=== PATIENT | female | born 1960 | race Caucasian/White ===

== ENCOUNTER 2020-01-31 07:59 | Inpatient (IN) | payer MEDICAID ==
[~2020-01-31] VITALS: Ht 157.5 cm; Wt 90.3 kg
[2020-01-31 08:51] LABS: BASOPHILS % 0.5 % (0.0-2.0); EOSINOPHILS % 0.2 % (0.0-5.0); HEMATOCRIT. 39.3 % (36.0-48.0); HEMOGLOBIN. 12.1 g/dL (12.0-16.0); LYMPHOCYTES % 11.4 % (20.0-50.0); MEAN CORPUSCULAR HEMOGLOBIN 24.3 pg (28.0-32.0); MEAN CORPUSCULAR VOLUME 79.1 fL (81.0-99.0); MEAN PLATELET VOLUME 9.2 fl (7.4-10.4); MONOCYTES % 9.6 % (2.0-8.0); NEUTROPHILS % 78.3 % (40.0-76.0); PLATELET 293 x1000/uL (130-400); RED BLOOD CELL COUNT 4.98 mill/uL (4.2-5.4); RED CELL DISTRIBUTION WIDTH 14.1 % (11.6-14.6)
[2020-01-31 08:54] LABS: CHLORIDE 102 mEq/L (98-107)
[2020-01-31 09:27] LABS: PROTHROMBIN TIME 10.6 sec (9.6-11.0)
[2020-01-31] MEDS ORDERED: SODIUM BICARBONATE 4% (2.4MEQ) 5ML VIAL IV ONE (10:09)
[2020-01-31] MEDS ORDERED: LIDOCAINE HCL 1% 20ML VIAL (Pyxis) INJ ONE (10:09)
[2020-01-31 12:09] LABS: BG CARBOXYHEMOGLOBIN 0.6 % (0.5-1.5); BG FRACTION INSPIRED OXYGEN 28; BG HCO3 ACT 27.1 mmol/L (22.0-26.0); BG METHEMOGLOBIN 0.1 % (0.0-1.5); BG OXYHEMOGLOBIN 93.3 % (94.0-97.0); BG PCO2 49.7 mmHg (35.0-45.0); BG PH 7.355 (7.350-7.450); BG PO2 73.6 mmHg (75.0-100.0); BG SAMPLE SITE LEFT RADIAL; BG TOTAL HEMOGLOBIN 12.4 g/dL (12.0-18.0); BG VENT MODE NASAL CANNULA
[2020-01-31] MEDS ORDERED: LEVOFLOXACIN 750MG PREMIX 150 ML IV ONE (12:15)
[2020-01-31 15:00] VITALS: BP 107/60
[2020-01-31] MEDS ORDERED: ONDANSETRON HCL 4MG/2ML INJ IV PRN (15:00)
[2020-01-31] MEDS ORDERED: LORAZEPAM 0.5MG TABLET PO PRN (15:00)
[2020-01-31] MEDS ORDERED: HYDROCODONE/ACETAMINOPHEN 5/325MG TABLET PO PRN (15:00)
[2020-01-31] MEDS ORDERED: GUAIFENESIN 200MG/10ML SUGAR FREE UDC PO PRN (15:00)
[2020-01-31] MEDS ORDERED: ACETAMINOPHEN 325MG TABLET PO PRN ×2 (15:00)
[2020-01-31] MEDS ORDERED: DOCUSATE SODIUM 100MG CAPSULE PO PRN (15:00)
[2020-01-31] MEDS ORDERED: CLONIDINE 0.1MG TABLET PO PRN (15:00)
[2020-01-31 16:00] VITALS: BP 110/62
[2020-01-31] MEDS ORDERED: FUROSEMIDE 40MG/4ML VIAL IVP NR (16:00)
[2020-01-31] MEDS: IPRATROPIUM/ALBUTEROL 0.5-3(2.5)MG/3ML NEB HHN PRN ×2 (18:08→21:56)
[2020-01-31 20:00] VITALS: BP 135/75
[2020-02-01] VITALS: BP 161/87
[2020-02-01 04:00] VITALS: BP 156/63
[2020-02-01 07:45] LABS: BASOPHILS % 0.3 % (0.0-2.0); EOSINOPHILS % 0.2 % (0.0-5.0); HEMATOCRIT. 35.6 % (36.0-48.0); LYMPHOCYTES % 10.6 % (20.0-50.0); MEAN CORPUSCULAR HEMOGLOBIN 24.3 pg (28.0-32.0); MEAN CORPUSCULAR VOLUME 78.2 fL (81.0-99.0); MEAN PLATELET VOLUME 9.6 fl (7.4-10.4); MONOCYTES % 12.2 % (2.0-8.0); NEUTROPHILS % 76.7 % (40.0-76.0); PLATELET 303 x1000/uL (130-400); RED BLOOD CELL COUNT 4.55 mill/uL (4.2-5.4); RED CELL DISTRIBUTION WIDTH 13.6 % (11.6-14.6)
[2020-02-01 07:56] LABS: CHLORIDE 101 mEq/L (98-107)
[2020-02-01 08:00] VITALS: BP 120/81
[2020-02-01] MEDS ORDERED: SODIUM BICARBONATE 4% (2.4MEQ) 5ML VIAL IV ONE ×2 (10:11→13:09)
[2020-02-01 12:00] VITALS: BP 159/78
[2020-02-01 16:00] VITALS: BP 111/72
[2020-02-01 20:00] VITALS: BP 104/67
[2020-02-02] VITALS (7 sets, daily range): BP systolic 118–149; BP diastolic 64–77
[2020-02-02 07:45] LABS: BASOPHILS % 0.4 % (0.0-2.0); EOSINOPHILS % 0.7 % (0.0-5.0); HEMATOCRIT. 34.7 % (36.0-48.0); HEMOGLOBIN. 10.9 g/dL (12.0-16.0); MEAN CORPUSCULAR HEMOGLOBIN 24.3 pg (28.0-32.0); MEAN CORPUSCULAR VOLUME 77.6 fL (81.0-99.0); MEAN PLATELET VOLUME 9.4 fl (7.4-10.4); MONOCYTES % 12.3 % (2.0-8.0); NEUTROPHILS % 72.6 % (40.0-76.0); PLATELET 300 x1000/uL (130-400); RED BLOOD CELL COUNT 4.48 mill/uL (4.2-5.4); RED CELL DISTRIBUTION WIDTH 13.8 % (11.6-14.6)
[2020-02-02 08:17] LABS: CHLORIDE 101 mEq/L (98-107)
[2020-02-02] MEDS ORDERED: LOPERAMIDE HCL 2MG CAPSULE PO PRN (21:30)
[2020-02-03] VITALS (7 sets, daily range): BP systolic 106–121; BP diastolic 59–79
[2020-02-03 07:11] LABS: BASOPHILS % 0.7 % (0.0-2.0); EOSINOPHILS % 2.4 % (0.0-5.0); HEMATOCRIT. 35.5 % (36.0-48.0); HEMOGLOBIN. 10.9 g/dL (12.0-16.0); MEAN CORPUSCULAR HEMOGLOBIN 23.9 pg (28.0-32.0); MEAN CORPUSCULAR VOLUME 77.6 fL (81.0-99.0); MEAN PLATELET VOLUME 9.7 fl (7.4-10.4); MONOCYTES % 13.1 % (2.0-8.0); NEUTROPHILS % 67.8 % (40.0-76.0); PLATELET 271 x1000/uL (130-400); RED BLOOD CELL COUNT 4.57 mill/uL (4.2-5.4); RED CELL DISTRIBUTION WIDTH 13.7 % (11.6-14.6)
[2020-02-03 07:28] LABS: CHLORIDE 102 mEq/L (98-107)
[2020-02-04 00:31] VITALS: BP 122/59
[2020-02-04 04:00] VITALS: BP 128/65
[2020-02-04 06:14] LABS: BASOPHILS % 0.6 % (0.0-2.0); EOSINOPHILS % 2.5 % (0.0-5.0); HEMATOCRIT. 32.7 % (36.0-48.0); HEMOGLOBIN. 10.4 g/dL (12.0-16.0); MEAN CORPUSCULAR HEMOGLOBIN 24.5 pg (28.0-32.0); MEAN CORPUSCULAR VOLUME 77.2 fL (81.0-99.0); MEAN PLATELET VOLUME 9.5 fl (7.4-10.4); MONOCYTES % 11.6 % (2.0-8.0); NEUTROPHILS % 68.3 % (40.0-76.0); PLATELET 268 x1000/uL (130-400); RED BLOOD CELL COUNT 4.24 mill/uL (4.2-5.4); RED CELL DISTRIBUTION WIDTH 13.4 % (11.6-14.6)
[2020-02-04 06:34] LABS: CHLORIDE 103 mEq/L (98-107)
[2020-02-04 08:00] VITALS: BP 109/76
[2020-02-04 12:00] VITALS: BP 127/62
[2020-02-04] MEDS ORDERED: FURO20TA4 MT (13:21)
[2020-02-04 14:30] VITALS: BP 127/62
== END 2020-02-04 15:55 | disposition home or self-care (01) | DRG 240 ==
LOC: ER 07:59 → 5WST 12:30 → ENRESERV 13:22
PROVIDERS: ADMIT Internal Medicine; ATTEND Internal Medicine
PROC: 0W9G3ZZ Drainage of Peritoneal Cavity, Percutaneous Approach (ICD-10-PCS; principal; 2020-01-31)
PROC: 0W993ZZ Drainage of Right Pleural Cavity, Percutaneous Approach (ICD-10-PCS; 2020-02-01)
PROC: 0W9B3ZZ Drainage of Left Pleural Cavity, Percutaneous Approach (ICD-10-PCS; 2020-02-02)
DX: C16.9 Malignant neoplasm of stomach, unspecified (principal); J91.0 Malignant pleural effusion; J18.9 Pneumonia, unspecified organism; Z90.710 Acquired absence of both cervix and uterus; R18.0 Malignant ascites; D72.810 Lymphocytopenia; E66.01 Morbid (severe) obesity due to excess calories; R74.0 Nonspecific elevation of levels of transaminase and lactic acid dehydrogenase [LDH]; J96.02 Acute respiratory failure with hypercapnia; D50.9 Iron deficiency anemia, unspecified; D72.821 Monocytosis (symptomatic); Z92.3 Personal history of irradiation; Z85.42 Personal history of malignant neoplasm of other parts of uterus; Z68.36 Body mass index [BMI] 36.0-36.9, adult
CPT/HCPCS: 32555; 36415; 36600; 49083; 71045; 76604; 80048; 80053; 82040; 82375; 82378; 82805; 83615; 85025; 86304; 87075; 88305; 93005; 93306; 94640; 99285; J1940; J1956; J3490

== ENCOUNTER 2020-02-12 12:14 | Inpatient (IN) | payer MEDICAID ==
[~2020-02-12] VITALS: Ht 154.9 cm; Wt 87.1 kg
[~2020-02-12 12:14] MED LIST: FURO20TA4 MT
[2020-02-12] MEDS ORDERED: ASPIRIN 81MG TABLET PO ONE (13:30)
[2020-02-12] MEDS ORDERED: VANCOMYCIN 1 G PREMIX 200 ML IV ONE (15:00)
[2020-02-12] MEDS ORDERED: PIPERACILLIN/TAZ 3.375G PREMIX 50 ML IV ONE (15:00)
[2020-02-12 15:36] LABS: BASOPHILS % 0.9 % (0.0-2.0); EOSINOPHILS % 0.6 % (0.0-5.0); HEMATOCRIT. 32.1 % (36.0-48.0); LYMPHOCYTES % 17.7 % (20.0-50.0); MEAN CORPUSCULAR HEMOGLOBIN 24.1 pg (28.0-32.0); MEAN CORPUSCULAR VOLUME 77.2 fL (81.0-99.0); MONOCYTES % 3.6 % (2.0-8.0); NEUTROPHILS % 77.2 % (40.0-76.0); RED BLOOD CELL COUNT 4.16 mill/uL (4.2-5.4); RED CELL DISTRIBUTION WIDTH 13.7 % (11.6-14.6)
[2020-02-12 15:40] LABS: CHLORIDE 107 mEq/L (98-107)
[2020-02-12 16:04] LABS: MEAN PLATELET VOLUME 9.9 fl (7.4-10.4); PLATELET 227 x1000/uL (130-400)
[2020-02-12 16:13] LABS: PROTHROMBIN TIME 10.3 sec (9.6-11.0)
[2020-02-12 16:35] LABS: CLARITY URINE CLEAR (CLEAR); COLOR URINE YELLOW (YELLOW); KETONES URINE NEGATIVE (NEGATIVE); LEUKOCYTE ESTERASE URINE NEGATIVE (NEGATIVE); NITRITE URINE NEGATIVE (NEGATIVE); OCCULT BLOOD URINE NEGATIVE (NEGATIVE); PH URINE 7.5 (4.5-8.0); PROTEIN URINE NEGATIVE (NEGATIVE); SPECIFIC GRAVITY URINE 1.015 (1.005-1.030); UROBILINOGEN URINE 0.2 E.U./dL (0.2-1.0)
[2020-02-12] MEDS ORDERED: ONDANSETRON HCL 4MG/2ML INJ IV PRN (17:30)
[2020-02-12] MEDS ORDERED: CLONIDINE 0.1MG TABLET PO PRN (17:30)
[2020-02-12] MEDS ORDERED: DIPHENHYDRAMINE 50MG/ML VIAL IV PRN (17:30)
[2020-02-12] MEDS ORDERED: IPRATROPIUM/ALBUTEROL 0.5-3(2.5)MG/3ML NEB HHN PRN (17:30)
[2020-02-12 18:20] LABS: PHOSPHORUS 3.3 mg/dL (2.5-4.9)
[2020-02-13] MEDS: PIPERACILLIN/TAZ 3.375G PREMIX 50 ML IV SCH ×2 (00:28→10:07)
[2020-02-13] MEDS: VANCOMYCIN 750 MG PREMIX 150 ML IV SCH ×3 (02:26→16:27)
[2020-02-13 05:07] VITALS: BP 106/82
[2020-02-13 06:09] LABS: BASOPHILS % 0.6 % (0.0-2.0); EOSINOPHILS % 3.8 % (0.0-5.0); HEMATOCRIT. 29.9 % (36.0-48.0); HEMOGLOBIN. 9.3 g/dL (12.0-16.0); LYMPHOCYTES % 19.8 % (20.0-50.0); MEAN CORPUSCULAR VOLUME 77.1 fL (81.0-99.0); MONOCYTES % 8.3 % (2.0-8.0); NEUTROPHILS % 67.5 % (40.0-76.0); PLATELET 227 x1000/uL (130-400); RED BLOOD CELL COUNT 3.88 mill/uL (4.2-5.4); RED CELL DISTRIBUTION WIDTH 13.5 % (11.6-14.6)
[2020-02-13 06:41] LABS: CHLORIDE 107 mEq/L (98-107)
[2020-02-13 08:00] VITALS: BP 136/72
[2020-02-13 12:00] VITALS: BP 103/57
[2020-02-13 16:00] VITALS: BP 128/72
[2020-02-13] MEDS: PIPERACILLIN/TAZOBACTAM 3.375 G in DEXT 5% WATER 100 ML IV SCH (17:24)
[2020-02-13 20:00] VITALS: BP 133/67
[2020-02-14] VITALS: BP 126/69
[2020-02-14] MEDS: PIPERACILLIN/TAZOBACTAM 3.375 G in DEXT 5% WATER 100 ML IV SCH ×4 (00:30→18:57)
[2020-02-14] MEDS: VANCOMYCIN 750 MG PREMIX 150 ML IV SCH ×2 (00:31→08:21)
[2020-02-14 04:00] VITALS: BP 143/72
[2020-02-14 07:08] LABS: CHLORIDE 109 mEq/L (98-107)
[2020-02-14 08:00] VITALS: BP 126/68
[2020-02-14 12:00] VITALS: BP 122/86
[2020-02-14] MEDS ORDERED: IOHEXOL-350 100 ML BOTTLE ONE (14:53)
[2020-02-14] MEDS ORDERED: FUROSEMIDE 40MG/4ML VIAL IVP NR (15:45)
[2020-02-14 16:00] VITALS: BP 147/61
[2020-02-14] MEDS: VANCOMYCIN 1250MG in DEXTROSE 5% WATER 250ML IV SCH (17:15)
[2020-02-14 20:00] VITALS: BP 136/60
[2020-02-15] VITALS: BP 118/58
[2020-02-15] MEDS: PIPERACILLIN/TAZOBACTAM 3.375 G in DEXT 5% WATER 100 ML IV SCH ×3 (00:17→12:19)
[2020-02-15 04:00] VITALS: BP 126/74
[2020-02-15] MEDS: VANCOMYCIN 1250MG in DEXTROSE 5% WATER 250ML IV SCH (06:48)
[2020-02-15 07:16] LABS: BASOPHILS % 0.5 % (0.0-2.0); EOSINOPHILS % 4.1 % (0.0-5.0); HEMATOCRIT. 29.3 % (36.0-48.0); HEMOGLOBIN. 9.2 g/dL (12.0-16.0); LYMPHOCYTES % 17.6 % (20.0-50.0); MEAN CORPUSCULAR HEMOGLOBIN 24.2 pg (28.0-32.0); MEAN CORPUSCULAR VOLUME 77.2 fL (81.0-99.0); MEAN PLATELET VOLUME 9.3 fl (7.4-10.4); NEUTROPHILS % 65.8 % (40.0-76.0); PLATELET 219 x1000/uL (130-400); RED CELL DISTRIBUTION WIDTH 13.7 % (11.6-14.6)
[2020-02-15 08:00] VITALS: BP 112/59
[2020-02-15 11:45] VITALS: BP 112/59
[2020-02-15 12:00] VITALS: BP 128/68
== END 2020-02-15 14:10 | disposition home or self-care (01) | DRG 133 ==
LOC: ER 12:14 → MICUSO 16:02 → EDBEDREQ 16:05 → 7WST 02-13 02:40 → 5WST 02-13 15:10
PROVIDERS: ADMIT Internal Medicine; ATTEND Internal Medicine
DX: J96.00 Acute respiratory failure, unspecified whether with hypoxia or hypercapnia (principal); J18.9 Pneumonia, unspecified organism; D50.9 Iron deficiency anemia, unspecified; Z60.2 Problems related to living alone; J91.8 Pleural effusion in other conditions classified elsewhere; C16.9 Malignant neoplasm of stomach, unspecified; R18.8 Other ascites; Z90.710 Acquired absence of both cervix and uterus; Z85.42 Personal history of malignant neoplasm of other parts of uterus; Z79.899 Other long term (current) drug therapy; Z03.818 Encounter for observation for suspected exposure to other biological agents ruled out
CPT/HCPCS: 36415; 71045; 71275; 76705; 80048; 80053; 80202; 81003; 83605; 83735; 83880; 84100; 84484; 85025; 85379; 87635; 93005; 93970; 96365; 99285; J1940; J2543; J3370; J7060; Q9967